=== PATIENT | male | born 1955 | race Caucasian/White ===

== ENCOUNTER 2017-11-19 05:25 | Emergency (ER) | payer MEDICARE, OTHER ==
[~2017-11-19] VITALS: Ht 182.9 cm; Wt 79.5 kg
[~2017-11-19 05:25] MED LIST: AMLO5TAB PO; CLIN-26 PO; DIAZ-351 PO; FAMO40TA73 PO; HYDR25TA4 PO; ONDA4TAB12 PO; OXYC-145 PO
[2017-11-19] MEDS ORDERED: LOSA50TA37 PO (06:12)
[2017-11-19] MEDS ORDERED: HYDR25TA4 PO (06:12)
[2017-11-19] MEDS ORDERED: TRAM50TA2 PO (06:18)
[2017-11-19 06:29] VITALS: BP 137/107
== END 2017-11-19 06:30 | disposition home or self-care (01) ==
LOC: ER 05:27
DX: Z76.0 Encounter for issue of repeat prescription (principal); M54.5 Low back pain; G89.29 Other chronic pain; I10 Essential (primary) hypertension; E11.9 Type 2 diabetes mellitus without complications; Z98.890 Other specified postprocedural states; Z79.899 Other long term (current) drug therapy; Z88.8 Allergy status to other drugs, medicaments and biological substances
CPT/HCPCS: 99283

== ENCOUNTER 2018-05-11 03:51 | Emergency (ER) | payer OTHER ==
[~2018-05-11] VITALS: Ht 177.8 cm; Wt 83.3 kg
[~2018-05-11 03:51] MED LIST changes: +ACET1TAB12 PO; +LOSA50TA37 PO
[2018-05-11 03:58] VITALS: BP 162/91
== END 2018-05-11 04:22 | disposition left against medical advice (07) ==
LOC: ER 03:51
DX: M54.9 Dorsalgia, unspecified (principal); Z53.21 Procedure and treatment not carried out due to patient leaving prior to being seen by health care provider

== ENCOUNTER 2018-07-04 15:24 | Emergency (ER) | payer MEDICARE, OTHER ==
[~2018-07-04] VITALS: Ht 175.3 cm; Wt 75.0 kg
[2018-07-04] MEDS: HYDROcodone/acetaminophen 10/325mg tab PO ONE (16:11)
[2018-07-04 16:20] LABS: BASOPHILS # (AUTO) 0.1 X10'3 (0-0.2); BASOPHILS % (AUTO) 0.8 % (0-1); EOSINOPHILS # (AUTO) 0.2 X10'3 (0-0.9); HEMATOCRIT 39.9 % (42.0-52.0); HEMOGLOBIN 13.7 g/dl (14.0-17.9); LYMPHOCYTES # (AUTO) 2.1 X10'3 (1.1-4.8); LYMPHOCYTES % (AUTO) 19.2 % (21-51); MEAN CORPUSCULAR HEMOGLOBIN 29.2 PG (27.0-31.0); MEAN CORPUSCULAR HGB CONC 34.4 % (33.0-36.5); MEAN PLATELET VOLUME 6.9 FL (7.4-10.4); MONOCYTES # (AUTO) 0.7 X10'3 (0-0.9); MONOCYTES % (AUTO) 6.9 % (2-12); NEUTROPHILS # (AUTO) 7.6 X10'3 (1.8-7.7); NEUTROPHILS % (AUTO) 71.1 % (42-75); PLATELET COUNT 295 X10'3 (140-440); RED BLOOD COUNT 4.69 X10'6 (4.70-6.10); RED CELL DISTRIBUTION WIDTH 15.4 % (11.5-14.5); WHITE BLOOD COUNT 10.7 X10'3 (4.5-11.0)
[2018-07-04 16:32] LABS: D-DIMER 1.58 MG/L FEU (0-0.50)
[2018-07-04 16:35] LABS: ALANINE AMINOTRANSFERASE 36 U/L (12-78); ALBUMIN 3.6 G/DL (3.4-5.0); ALKALINE PHOSPHATASE 99 IU/L (46-116); ANION GAP 14 (8-16); ASPARTATE AMINO TRANSFERASE 24 U/L (10-37); BILIRUBIN,TOTAL 0.3 MG/DL (0.1-1.0); BLOOD UREA NITROGEN 20 MG/DL (7-18); CALCIUM 8.5 MG/DL (8.5-10.1); CHLORIDE 100 MMOL/L (99-107); CREATININE 0.87 MG/DL (0.60-1.10); GLUCOSE 112 MG/DL (70-104); POTASSIUM 3.3 MMOL/L (3.5-5.1); SODIUM 137 MMOL/L (135-145); TOTAL PROTEIN 7.2 G/DL (6.4-8.2); eGFR 89 ML/MIN
[2018-07-04] MEDS ORDERED: iohexol 350MG/ML 100ml bottle IV ONE (16:56)
[2018-07-04 17:15] VITALS: BP 154/101
[2018-07-05] MEDS ORDERED: HYDR12.5 PO (16:15)
== END 2018-07-04 18:46 | disposition home or self-care (01) ==
LOC: ER 15:24
DX: I73.9 Peripheral vascular disease, unspecified (principal); M79.89 Other specified soft tissue disorders; I10 Essential (primary) hypertension; E11.9 Type 2 diabetes mellitus without complications; G89.29 Other chronic pain; Z98.890 Other specified postprocedural states; Z88.8 Allergy status to other drugs, medicaments and biological substances; Z79.899 Other long term (current) drug therapy; Z98.1 Arthrodesis status
CPT/HCPCS: 36415; 71275; 72100; 73610; 80053; 85025; 85379; 93922; 93926; 93971; 99285; J7030; Q9967

== ENCOUNTER 2018-07-05 14:47 | Emergency (ER) | payer MEDICARE ==
[~2018-07-05] VITALS: Ht 177.8 cm; Wt 86.0 kg
[2018-07-05 14:56] VITALS: BP 153/98
[2018-07-05] MEDS ORDERED: HYDR12.5 PO (16:15)
== END 2018-07-05 16:24 | disposition home or self-care (01) ==
LOC: ER 14:48
DX: I10 Essential (primary) hypertension (principal); E11.9 Type 2 diabetes mellitus without complications; G89.29 Other chronic pain; Z98.890 Other specified postprocedural states; Z88.8 Allergy status to other drugs, medicaments and biological substances; Z88.6 Allergy status to analgesic agent; Z79.899 Other long term (current) drug therapy
CPT/HCPCS: 70450; 99284

== ENCOUNTER 2018-09-23 23:08 | Emergency (ER) | payer MEDICARE ==
[~2018-09-23] VITALS: Ht 175.3 cm; Wt 68.6 kg
[~2018-09-23 23:08] MED LIST changes: +HYDR12.5 PO; +LOSA50TA21 PO; -LOSA50TA37 PO
[2018-09-23 23:13] VITALS: BP 161/107
[2018-09-24] MEDS ORDERED: ACET-812 PO (01:33)
[2018-09-24] MEDS ORDERED: acetaminophen 325mg tablet PO ONE (01:35)
== END 2018-09-24 02:08 | disposition home or self-care (01) ==
LOC: ER 23:10
DX: M79.672 Pain in left foot (principal); I10 Essential (primary) hypertension; E11.9 Type 2 diabetes mellitus without complications; G89.29 Other chronic pain; Z98.890 Other specified postprocedural states; Z60.2 Problems related to living alone; Z79.2 Long term (current) use of antibiotics; Z79.899 Other long term (current) drug therapy
CPT/HCPCS: 99282

== ENCOUNTER 2021-05-22 00:33 | Emergency (ER) | payer MEDICARE, OTHER ==
[~2021-05-22] VITALS: Ht 175.3 cm; Wt 77.0 kg
[~2021-05-22 00:33] MED LIST changes: +ACET-812 PO; -LOSA50TA21 PO; +LOSA50TA64 PO
[2021-05-22 00:36] VITALS: BP 189/123
--- NOTE | 2021-05-22 01:48 | NUR ---
PT REFUSING TO WEAR HIS MASK DUE TO HIS ASTHMA - PT ADVISED THAT HE HAS TO WEAR A MASK AND WE WILL MAKE SURE HIS BREATHING IS OK. PT RELUCTANTLY PLACES HIS MASK
[2021-05-22] MEDS ORDERED: ketorolac trometh. 30mg/ml inj. IM ONE (02:35)
[2021-05-22] MEDS ORDERED: albuterol 2.5 MG/3 ML nebule NEB ONE (03:05)
[2021-05-22] MEDS ORDERED: HYDROcodone/acetaminophen 5mg/325mg tablet PO ONE (03:05)
[2021-05-22] MEDS ORDERED: cyclobenzaprine 10mg tablet PO ONE (03:05)
== END 2021-05-22 04:05 | disposition home or self-care (01) ==
LOC: ER 00:35
DX: S50.812A Abrasion of left forearm, initial encounter (principal); G89.29 Other chronic pain; M54.9 Dorsalgia, unspecified; R06.02 Shortness of breath; I10 Essential (primary) hypertension; J45.909 Unspecified asthma, uncomplicated; E11.9 Type 2 diabetes mellitus without complications; Z85.47 Personal history of malignant neoplasm of testis; Z72.89 Other problems related to lifestyle; Z98.890 Other specified postprocedural states; Z79.2 Long term (current) use of antibiotics; Z79.899 Other long term (current) drug therapy; W54.0XXA Bitten by dog, initial encounter; Y93.89 Activity, other specified; Y92.89 Other specified places as the place of occurrence of the external cause; Y99.8 Other external cause status
CPT/HCPCS: 94640; 96372; 99283; J1885; 94760

== ENCOUNTER 2021-12-04 00:15 | Emergency (ER) | payer MEDICARE ==
[~2021-12-04] VITALS: Ht 177.8 cm; Wt 68.2 kg
[2021-12-04 00:17] VITALS: BP 159/113
--- NOTE | 2021-12-04 02:17 | NUR ---
Patient up and out to the nurses station again, very restless. I escorted him back to his room and asked him to please stay there where we could monitor his vitals. Back in the room he wanted to know why we hadn't given him anything for pain. He was advised xrays were taken and the MD had to evaluate him before he would order any medication. The patient said he was having an anxiety attack, could not keep BP cuff or anything else on He just wanted something for pain, and again we advised it was up to the doctor. He then said he would just leave, because we refused to to anything to help him. He left complaining all the way to admitting.
== END 2021-12-04 02:24 | disposition left against medical advice (07) ==
LOC: ER 00:16
DX: M25.552 Pain in left hip (principal); Z53.21 Procedure and treatment not carried out due to patient leaving prior to being seen by health care provider
CPT/HCPCS: 73030; 73502